=== PATIENT | male | born 2000 | race Caucasian/White ===

== ENCOUNTER 2021-12-29 07:28 | Emergency (ER) | payer OTHER ==
[~2021-12-29] VITALS: Ht 182.9 cm; Wt 80.9 kg
[2021-12-29 09:05] VITALS: BP 122/78
== END 2021-12-29 09:04 | disposition home or self-care (01) ==
LOC: ED 07:28
DX: S61.511A Laceration without foreign body of right wrist, initial encounter (principal); Z23 Encounter for immunization; Z28.310 Unvaccinated for COVID-19; W26.8XXA Contact with other sharp object(s), not elsewhere classified, initial encounter; Y92.59 Other trade areas as the place of occurrence of the external cause; Y99.0 Civilian activity done for income or pay
CPT/HCPCS: 90715